=== PATIENT | female | born 1985 | race Caucasian/White ===

== ENCOUNTER 2016-12-11 07:57 | Outpatient (CLI) | payer OTHER ==
[~2016-12-11 07:57] MED LIST: PERCOCET1 TA1 PO
== END 2016-12-11 23:00 ==
LOC: LAB SRH 07:57
DX: Z00.00 Encounter for general adult medical examination without abnormal findings (principal)
CPT/HCPCS: 90074; 90100; 91282; 92690; 93140; 95059

== ENCOUNTER 2017-03-24 07:11 | Emergency (ER) | payer OTHER ==
--- NOTE | 2017-03-24 07:52 | ED CLINICAL REPORT ---
Clinical Report - Physicians/Mid Levels [facility] [address] [place] [address] 03/24/2017 7:12 Patient: JESSICA GUERRA Time Seen: 07:23. Arrived- By private vehicle. Historian- patient. HISTORY OF PRESENT ILLNESS Chief Complaint: DYSURIA. FLANK PAIN. This started several days ago and still present. It was gradual in onset and has been waxing/waning. The symptoms are described as moderate. Modifying factors- worsened by urination. Relieved by rest. The patient has had mild left-sided lower back pain. She has had mild left-sided flank pain. No abdominal pain, pelvic pain or abnormal bleeding. She has had pain with urination and urgency of urination. The patient has had urinary frequency and hematuria. 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 She reportedly had a urine test which confirmed UTI and was given a 3 day course of an uncertain antibiotic - may have "began with an N"). Similar symptoms previously: Recent medical care: The patient was seen recently at another facility. REVIEW OF SYSTEMS No nausea, vomiting, diarrhea, black stools or fever. No sore throat, cough, difficulty breathing, chest pain or skin rash. PAST HISTORY See nurses notes. ( PCP: Dr Kim). Urinary tract infection. Surgeries: Tubal ligation. Medications: None. Allergies: No Known Drug Allergy. SOCIAL HISTORY Never smoker. Occasional alcohol use. No drug use. Resides in a house. ADDITIONAL NOTES The nursing notes have been reviewed. PHYSICAL EXAM Vital Signs: 03/24/2017 07:16 BP: 119/74. HR: 83. RR: 16. O2 saturation: 100%. Temp: 98.3 F. Pain level now: 5/10. Appearance: Alert. Oriented X3. No acute distress. HEENT: Normal external inspection. ENT: Pharynx normal. Neck: Neck supple. CVS: Heart sounds normal. Respiratory: No respiratory distress. Breath sounds normal. Abdomen: Soft and nontender. No mass. Skin: Skin warm and dry. Normal skin color. No rash. Normal skin turgor. Extremities: Extremities nontender. No lower extremity edema. Neuro: Oriented X 3. Mood/affect normal. No motor deficit. LABS, X-RAYS, AND EKG Laboratory Tests: UA-Culture if indicated: (MIREILLE: 03/24/2017 07:20) ( MsgRcvd 03/24/2017 07:49) Final results Test Result Flag Units (Reference) URINE COLOR YELLOW URINE APPEARANCE CLEAR URINE GLUCOSE NEGATIVE (NEGATIVE) URINE BILIRUBIN NEGATIVE (NEGATIVE) URINE KETONE NEGATIVE (NEGATIVE) URINE SPECIFIC GRAVITY 1.020 (1.010-1.030) URINE PH 6.0 (5.0-8.0) URINE PROTEIN NEGATIVE (NEGATIVE) URINE UROBILINOGEN 0.2 EU/dL (0.2-1.0) URINE NITRITE NEGATIVE (NEGATIVE) URINE BLOOD NEGATIVE (NEGATIVE) URINE LEUK ESTERASE NEGATIVE (NEGATIVE) URINE RBC 0-1 rbc/hpf (0-1) URINE WBC 0-1 wbc/hpf (0-1) URINE EPITHELIAL CELLS 0-1 EPI/hpf (0-5) URINE BACTERIA NONE SEEN (NONE SEEN) URINE COMMENT CULT NOT INDICATED URINE CULTURES ARE SET-UP BASED ON THE FOLLOWING CRITERIA:POSITIVE NITRITEPOSITIVE LEUKOCYTE ESTERASEGREATER THAN 10 WHITE BLOOD CELLSMODERATE (2+) OR GREATER BACTERIA Urine: (MIREILLE: 03/24/2017 07:20) ( MsgRcvd 03/24/2017 07:29) Final results Test Result Flag Units (Reference) URINE NEGATIVE . Pulse Oximetry: 03/24/2017 07:16 O2 saturation: 100%. (FIO2 - room air). Interpretation: normal. PROGRESS AND PROCEDURES Course of Care: May be resolving UTI vs atypical kidney stone vs march hematuria vs other - will need close out pt follow up - she understands and states she will comply. Patient/family counseled. Old ED records reviewed. Disposition: Discharged. Condition: stable and improved. CLINICAL IMPRESSION Gross hematuria (possible "december hematuria"). Acute urinary tract infection with cystitis (resolving). Possible left nephrolithiasis with renal colic. INSTRUCTIONS Do not work for three days. Drink plenty of fluids. Warnings: Further evaluation is necessary in order to recheck abnormal lab, obtain test results, conduct further tests and assess the possibility of serious illness. It is very important to follow up with a physician. GENERAL WARNINGS: Return or contact your physician immediately if your condition worsens or changes unexpectedly, if not improving as expected, or if other problems arise. Prescription Medications: Pyridium 200 mg: take 1 orally every 8 hours as needed for urinary problems. Dispense six (6). No refills. Substitution is permissible. Follow-up with: Bety Kim MD, [facility], , [facility], [address] [place] [address] Follow up tomorrow. (Electronically signed by Mal Montalvo DO 03/25/2017 11:45)
--- NOTE | 2017-03-24 07:52 | ED ORDER SUMMARY ---
..... Patient: JESSICA GUERRA OrderSheet [facility] VisitID: [id number] [address] [place] [address] 31y, F Registration Date/Time: 03/24/2017 ORDER SHEET Weight: 78.0 kg (stated) Allergies: No Known Drug Allergy GENERAL ORDERS: UA-Culture if indicated Urgent (07:03/24/2017 MWinterer R.N. per protocol) (Ack 7:23 RKciara) (7:23 MWinterer R.N.) Urine Urgent (07:03/24/2017 MWinterer R.N. per protocol) (Ack 7:23 RKciara) (7:23 MWinterer R.N.) MEDICATION ORDERS: IV FLUIDS: ORDER SHEET NOTES: [Electronically signed by Roxane Gallo R.N. (09:03/25/2017)] [Electronically signed by Mal Montalvo DO (11:45 03/25/2017)] [Electronically locked/signed by Roxane Gallo R.N. (09:03/25/2017)]
--- NOTE | 2017-03-24 07:52 | ED CLINICAL REPORT ---
Clinical Report - Physicians/Mid Levels [facility] [address] [place] [address] 03/24/2017 7:12 Patient: JESSICA GUERRA Time Seen: 07:23. Arrived- By private vehicle. Historian- patient. HISTORY OF PRESENT ILLNESS Chief Complaint: DYSURIA. FLANK PAIN. This started several days ago and still present. It was gradual in onset and has been waxing/waning. The symptoms are described as moderate. Modifying factors- worsened by urination. Relieved by rest. The patient has had mild left-sided lower back pain. She has had mild left-sided flank pain. No abdominal pain, pelvic pain or abnormal bleeding. She has had pain with urination and urgency of urination. The patient has had urinary frequency and hematuria. 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 She reportedly had a urine test which confirmed UTI and was given a 3 day course of an uncertain antibiotic - may have "began with an N"). Similar symptoms previously: Recent medical care: The patient was seen recently at another facility. REVIEW OF SYSTEMS No nausea, vomiting, diarrhea, black stools or fever. No sore throat, cough, difficulty breathing, chest pain or skin rash. PAST HISTORY See nurses notes. ( PCP: Dr Kim). Urinary tract infection. Surgeries: Tubal ligation. Medications: None. Allergies: No Known Drug Allergy. SOCIAL HISTORY Never smoker. Occasional alcohol use. No drug use. Resides in a house. ADDITIONAL NOTES The nursing notes have been reviewed. PHYSICAL EXAM Vital Signs: 03/24/2017 07:16 BP: 119/74. HR: 83. RR: 16. O2 saturation: 100%. Temp: 98.3 F. Pain level now: 5/10. Appearance: Alert. Oriented X3. No acute distress. HEENT: Normal external inspection. ENT: Pharynx normal. Neck: Neck supple. CVS: Heart sounds normal. Respiratory: No respiratory distress. Breath sounds normal. Abdomen: Soft and nontender. No mass. Skin: Skin warm and dry. Normal skin color. No rash. Normal skin turgor. Extremities: Extremities nontender. No lower extremity edema. Neuro: Oriented X 3. Mood/affect normal. No motor deficit. LABS, X-RAYS, AND EKG Laboratory Tests: UA-Culture if indicated: (MIREILLE: 03/24/2017 07:20) ( MsgRcvd 03/24/2017 07:49) Final results Test Result Flag Units (Reference) URINE COLOR YELLOW URINE APPEARANCE CLEAR URINE GLUCOSE NEGATIVE (NEGATIVE) URINE BILIRUBIN NEGATIVE (NEGATIVE) URINE KETONE NEGATIVE (NEGATIVE) URINE SPECIFIC GRAVITY 1.020 (1.010-1.030) URINE PH 6.0 (5.0-8.0) URINE PROTEIN NEGATIVE (NEGATIVE) URINE UROBILINOGEN 0.2 EU/dL (0.2-1.0) URINE NITRITE NEGATIVE (NEGATIVE) URINE BLOOD NEGATIVE (NEGATIVE) URINE LEUK ESTERASE NEGATIVE (NEGATIVE) URINE RBC 0-1 rbc/hpf (0-1) URINE WBC 0-1 wbc/hpf (0-1) URINE EPITHELIAL CELLS 0-1 EPI/hpf (0-5) URINE BACTERIA NONE SEEN (NONE SEEN) URINE COMMENT CULT NOT INDICATED URINE CULTURES ARE SET-UP BASED ON THE FOLLOWING CRITERIA:POSITIVE NITRITEPOSITIVE LEUKOCYTE ESTERASEGREATER THAN 10 WHITE BLOOD CELLSMODERATE (2+) OR GREATER BACTERIA Urine: (MIREILLE: 03/24/2017 07:20) ( MsgRcvd 03/24/2017 07:29) Final results Test Result Flag Units (Reference) URINE NEGATIVE . Pulse Oximetry: 03/24/2017 07:16 O2 saturation: 100%. (FIO2 - room air). Interpretation: normal. PROGRESS AND PROCEDURES Course of Care: May be resolving UTI vs atypical kidney stone vs march hematuria vs other - will need close out pt follow up - she understands and states she will comply. Patient/family counseled. Old ED records reviewed. Disposition: Discharged. Condition: stable and improved. CLINICAL IMPRESSION Gross hematuria (possible "december hematuria"). Acute urinary tract infection with cystitis (resolving). Possible left nephrolithiasis with renal colic. INSTRUCTIONS Do not work for three days. Drink plenty of fluids. Warnings: Further evaluation is necessary in order to recheck abnormal lab, obtain test results, conduct further tests and assess the possibility of serious illness. It is very important to follow up with a physician. GENERAL WARNINGS: Return or contact your physician immediately if your condition worsens or changes unexpectedly, if not improving as expected, or if other problems arise. Prescription Medications: Pyridium 200 mg: take 1 orally every 8 hours as needed for urinary problems. Dispense six (6). No refills. Substitution is permissible. Follow-up with: Bety Kim MD, [facility], , [facility], [address] [place] [address] Follow up tomorrow. (Electronically signed by Mal Montalvo DO 03/25/2017 11:45)
--- NOTE | 2017-03-24 07:52 | ED NURSING NOTES ---
Clinical Report - Nurses [facility] [address] [place] [address] 03/24/2017 7:12 Patient: JESSICA GUERRA TRIAGE Acuity: LEVEL 3. Chief Complaint: PAINFUL URINATION and LEFT-SIDED FLANK PAIN and BLOOD IN URINE. Alert. No acute distress. --07:20 Roxane Gallo R.N. 07:16 03/24/17. BP: 119/74. HR: 83. RR: 16. O2 saturation: 100%. Temp: 98.3 F (oral). Pain level now: 02/13. --07:20 Roxane Gallo R.N. Weight: 78 kg stated. Height/Length: 63 inches Per Patient. BMI: 30.5. --07:18 Roxane Gallo R.N. Medications None. --07:18 Roxane Gallo R.N. Medication/allergy information source: the patient. --07:20 Roxane Gallo R.N. Allergies No Known Drug Allergy. --07:18 Roxane Gallo R.N. History Arrived by private vehicle. Historian: patient. Unaccompanied. Primary physician (Julio). Onset. (4 days ago). 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 PAST MEDICAL HX: Immunizations: up-to-date. Last normal menstrual period was 3 weeks ago. Has had a tubal ligation. SOCIAL HX: Never smoker. Occasional alcohol use; consumes wine. No drug use. FALL RISK ASSESSMENT: Fall risk assessment completed. No fall risk identified. NUTRITIONAL RISK ASSESSMENT: The nutritional risk assessment revealed no deficiencies. FUNCTIONAL ASSESSMENT: Functional assessment: no impairments noted. LEARNING NEEDS ASSESSMENT: The learning needs assessment revealed no barriers. SKIN INTEGRITY ASSESSMENT: Skin integrity risk assessment completed. No skin integrity risk identified. --07:20 Roxane Gallo R.N. Assessment GENERAL / NEURO / PSYCH: Alert. Oriented X 4. Appears in no acute distress. [place] Coma Scale: 15- eyes open spontaneously (4); best verbal response- oriented x 4 (5); best motor response- obeys commands (6). Patient appears calm and cooperative. RESPIRATORY: Respirations not labored. CVS: Capillary refill less than 2 seconds. GI / : Abdomen soft and nontender. SKIN: Mucous membranes are pink. Skin is warm and dry. --07:20 Roxane Gallo R.N. Interventions ID band on patient. To treatment room. --07:20 Roxane Gallo R.N. PHYSICAL ASSESSMENT 07:03/24/17. Ambulatory to room. GENERAL / NEURO / PSYCH: Alert. Oriented X 4. Appears in no acute distress. HEENT: Mucous membranes are pink. RESPIRATORY: Respirations not labored. CVS: Capillary refill less than 2 seconds. GI / : Abdomen soft and nontender. SKIN: Skin is warm and dry. --07:21 Roxane Gallo R.N. NURSING PROGRESS NOTES 07:21 03/24/17. Patient gowned. Two patient identifiers checked. Call light placed in reach. Bed placed in lowest position. Brakes of bed on. Patient ready for evaluation- chart flagged and ED physician notified. --07:21 Roxane Gallo R.N. 07:03/24/17. Checked patient name and birthdate: patient confirmed. Instructions provided to collect clean catch urine and patient verbalized understanding. Clean catch urine collected with return of yellow-colored clear urine; sample sent to lab for urinalysis and HCG. Specimen labeled in the presence of the patient. --07:21 Roxane Gallo R.N. DISPOSITION / DISCHARGE 08:03/24/17. BP: 117/68. HR: 71. RR: 18. O2 saturation: 100%. Temp: 97.9 F. --08:06 Claudia Adler 08:10. The patient was discharged by the physician. --15:49 Elodia Vasquez R.N. Locked/Released at 03/25/2017 9:01 by Roxane Gallo R.N.
--- NOTE | 2017-03-24 07:52 | ED ORDER SUMMARY ---
..... Patient: JESSICA GUERRA OrderSheet [facility] VisitID: [id number] [address] [place] [address] 31y, F Registration Date/Time: 03/24/2017 ORDER SHEET Weight: 78.0 kg (stated) Allergies: No Known Drug Allergy GENERAL ORDERS: UA-Culture if indicated Urgent (07:03/24/2017 MWinterer R.N. per protocol) (Ack 7:23 RKciara) (7:23 MWinterer R.N.) Urine Urgent (07:03/24/2017 MWinterer R.N. per protocol) (Ack 7:23 RKciara) (7:23 MWinterer R.N.) MEDICATION ORDERS: IV FLUIDS: ORDER SHEET NOTES: [Electronically signed by Roxane Gallo R.N. (09:03/25/2017)] [Electronically signed by Mal Montalvo DO (11:45 03/25/2017)] [Electronically locked/signed by Roxane Gallo R.N. (09:03/25/2017)]
--- NOTE | 2017-03-24 07:52 | ED NURSING NOTES ---
Clinical Report - Nurses [facility] [address] [place] [address] 03/24/2017 7:12 Patient: JESSICA GUERRA TRIAGE Acuity: LEVEL 3. Chief Complaint: PAINFUL URINATION and LEFT-SIDED FLANK PAIN and BLOOD IN URINE. Alert. No acute distress. --07:20 Roxane Gallo R.N. 07:16 03/24/17. BP: 119/74. HR: 83. RR: 16. O2 saturation: 100%. Temp: 98.3 F (oral). Pain level now: 02/13. --07:20 Roxane Gallo R.N. Weight: 78 kg stated. Height/Length: 63 inches Per Patient. BMI: 30.5. --07:18 Roxane Gallo R.N. Medications None. --07:18 Roxane Gallo R.N. Medication/allergy information source: the patient. --07:20 Roxane Gallo R.N. Allergies No Known Drug Allergy. --07:18 Roxane Gallo R.N. History Arrived by private vehicle. Historian: patient. Unaccompanied. Primary physician (Julio). Onset. (4 days ago). 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 PAST MEDICAL HX: Immunizations: up-to-date. Last normal menstrual period was 3 weeks ago. Has had a tubal ligation. SOCIAL HX: Never smoker. Occasional alcohol use; consumes wine. No drug use. FALL RISK ASSESSMENT: Fall risk assessment completed. No fall risk identified. NUTRITIONAL RISK ASSESSMENT: The nutritional risk assessment revealed no deficiencies. FUNCTIONAL ASSESSMENT: Functional assessment: no impairments noted. LEARNING NEEDS ASSESSMENT: The learning needs assessment revealed no barriers. SKIN INTEGRITY ASSESSMENT: Skin integrity risk assessment completed. No skin integrity risk identified. --07:20 Roxane Gallo R.N. Assessment GENERAL / NEURO / PSYCH: Alert. Oriented X 4. Appears in no acute distress. [place] Coma Scale: 15- eyes open spontaneously (4); best verbal response- oriented x 4 (5); best motor response- obeys commands (6). Patient appears calm and cooperative. RESPIRATORY: Respirations not labored. CVS: Capillary refill less than 2 seconds. GI / : Abdomen soft and nontender. SKIN: Mucous membranes are pink. Skin is warm and dry. --07:20 Roxane Gallo R.N. Interventions ID band on patient. To treatment room. --07:20 Roxane Gallo R.N. PHYSICAL ASSESSMENT 07:03/24/17. Ambulatory to room. GENERAL / NEURO / PSYCH: Alert. Oriented X 4. Appears in no acute distress. HEENT: Mucous membranes are pink. RESPIRATORY: Respirations not labored. CVS: Capillary refill less than 2 seconds. GI / : Abdomen soft and nontender. SKIN: Skin is warm and dry. --07:21 Roxane Gallo R.N. NURSING PROGRESS NOTES 07:21 03/24/17. Patient gowned. Two patient identifiers checked. Call light placed in reach. Bed placed in lowest position. Brakes of bed on. Patient ready for evaluation- chart flagged and ED physician notified. --07:21 Roxane Gallo R.N. 07:03/24/17. Checked patient name and birthdate: patient confirmed. Instructions provided to collect clean catch urine and patient verbalized understanding. Clean catch urine collected with return of yellow-colored clear urine; sample sent to lab for urinalysis and HCG. Specimen labeled in the presence of the patient. --07:21 Roxane Gallo R.N. DISPOSITION / DISCHARGE 08:03/24/17. BP: 117/68. HR: 71. RR: 18. O2 saturation: 100%. Temp: 97.9 F. --08:06 Claudia Adler 08:10. The patient was discharged by the physician. --15:49 Elodia Vasquez R.N. Locked/Released at 03/25/2017 9:01 by Roxane Gallo R.N.
--- NOTE | 2017-03-25 11:45 | ED MAR SUMMARY ---
..... Medication Administration Record [facility] [address] [place], [place] [id number] Patient: JESSICA GUERRA Visit ID: [id number] 31y, F Weight: 78.0 kg Height/Length: 63 in BMI: 30.5 ALLERGIES: No Known Drug Allergy
--- NOTE | 2017-03-25 11:45 | ED DISCHARGE INSTRUCTIONS ---
Patient: JESSICA GUERRA General Instructions [facility] VisitID: [id number] [address] [place] [address] 31y, F Registration Date/Time: 03/24/2017 Gross hematuria Acute urinary tract infection with cystitis (resolving). INSTRUCTIONS Do not work for three days. Drink plenty of fluids. Warnings: Further evaluation is necessary in order to recheck abnormal lab, obtain test results, conduct further tests and assess the possibility of serious illness. It is very important to follow up with a physician. GENERAL WARNINGS: Return or contact your physician immediately if your condition worsens or changes unexpectedly, if not improving as expected, or if other problems arise. Prescription Medications: Pyridium 200 mg: take 1 orally every 8 hours as needed for urinary problems. Dispense six (6). No refills. Substitution is permissible. Follow-up with: Bety Kim MD, [facility], , [facility], [address] [place] [address] Follow up tomorrow. ADDITIONAL INFORMATION Bladder Infection,Female (Adult) A bladder infection ("cystitis" or "UTI") usually causes a constant urge to urinate and a burning when passing urine. Urine may be cloudy, smelly or dark. There may be pain in the lower abdomen. A bladder infection occurs when bacteria from the vaginal area enter the bladder opening (urethra). This can occur from sexual intercourse, wearing tight clothing, dehydration and other factors. Home Care: Drink lots of fluids (at least 6-8 glasses a day, unless you must restrict fluids for other medical reasons). This will force the medicine into your urinary system and flush the bacteria out of your body. Avoid sexual intercourse until your symptoms are gone. Avoid caffeine, alcohol and spicy foods. These can irritate the bladder. A bladder infection is treated with antibiotics. You may also be given Pyridium (generic = phenazopyridine) to reduce the burning sensation. This medicine will cause your urine to become a bright orange color. The orange urine may stain clothing. You may wear a pad or panty-liner to protect clothing. Preventing Future Infections: Always wipe from front to back after a bowel movement. Keep the genital area clean and dry. Drink plenty of fluids each day to avoid dehydration. Both sexual partners should wash before intercourse. Urinate right after intercourse to flush out the bladder. Wear cotton underwear and cotton-lined panty hose; avoid tight-fitting pants. If you are on control pills and are having frequent bladder infections, discuss with your doctor. Follow Up: Return to this facility or see your doctor if ALL symptoms are not gone after three days of treatment. Get Prompt Medical Attention if any of the following occur: Fever of 100.4F (38C) or higher, or as directed by your healthcare provider No improvement by the third day of treatment Increasing back or abdominal pain Repeated vomiting; unable to keep medicine down Weakness, dizziness or fainting Vaginal discharge Pain, redness or swelling in the labia (outer vaginal area) Blood In The Urine Blood in the urine ("hematuria") has many possible causes. If it occurs after an injury (such as a car accident or fall), it is most often a sign of bruising to the kidney or bladder. Common medical causes of blood in the urine include urinary tract infection, kidney stone, inflammation, tumors, or certain other diseases of the kidney or bladder. Menstruation can cause blood to appear in the urine sample, although it is not coming from the urinary tract. If only a trace amount of blood is present, it will show up on the urine test, even though the urine may be yellow and not pink or red. This may occur with any of the above conditions, as well as heavy exercise or high fever. In this case, your doctor may want to repeat the urine test on another day. This will show if the blood is still present. If so, then other tests can be done to find out the cause. Home Care: If your urine does not appear bloody (pink, brown or red) then you do not need to restrict your activity in any way. If you can see blood in your urine, rest and avoid heavy exertion until your next exam. Do not use aspirin or anti-inflammatory medicine like ibuprofen (Motrin, Advil) or naproxen (Naprosyn, Aleve). These thin the blood and may increase bleeding. Follow Up with your doctor or as advised by our staff. If you were injured and had blood in your urine, you should have a repeat urine test in 1-2 days. Contact your doctor or return to this facility for this test. [NOTE: A radiologist will review any X-rays that were taken. We will notify you of any new findings that may affect your care.] Get Prompt Medical Attention if any of the following occur: Bright red blood or blood clots in the urine (if a new symptom) Weakness, dizziness or fainting New groin, abdominal or back pain Fever of 100.4F (38C) or higher, or as directed by your healthcare provider Repeated vomiting Bleeding from nose, gums or easy bruising Phenazopyridine Hydrochloride Oral tablet What is this medicine? PHENAZOPYRIDINE (fen az oh PEER i ramon) is a pain reliever. It is used to stop the pain, burning, or discomfort caused by infection or irritation of the urinary tract. This medicine is not an antibiotic. It will not cure a urinary tract infection. How should I use this medicine? Take this medicine by mouth with a glass of water. Follow the directions on the prescription label. Take after meals. Take your doses at regular intervals. Do not take your medicine more often than directed. Do not skip doses or stop your medicine early even if you feel better. Do not stop taking except on your doctor's advice. Talk to your hand flesher regarding the use of this medicine in children. Special care may be needed. What side effects may I notice from receiving this medicine? Side effects that you should report to your doctor or health childcare aide as soon as possible: allergic reactions like skin rash, itching or hives, swelling of the face, lips, or tongue blue or purple color of the skin difficulty breathing fever less urine unusual bleeding, bruising unusual tired, weak vomiting yellowing of the eyes or skin Side effects that usually do not require medical attention (report to your doctor or health childcare aide if they continue or are bothersome): dark urine headache stomach upset What may interact with this medicine? Interactions are not expected. What if I miss a dose? If you miss a dose, take it as soon as you can. If it is almost time for your next dose, take only that dose. Do not take double or extra doses. Where should I keep my medicine? Keep out of the reach of children. Store at room temperature between 15 and 30 degrees C (59 and 86 degrees F). Protect from light and moisture. Throw away any unused medicine after the expiration date. What should I tell my health care provider before I take this medicine? They need to know if you have any of these conditions: [id number]-3-kpnjejajw dehydrogenase (G6PD) deficiency kidney disease an unusual or allergic reaction to phenazopyridine, other medicines, foods, dyes, or preservatives or trying to get breast-feeding What should I watch for while using this medicine? Tell your doctor or health childcare aide if your symptoms do not improve or if they get worse. This medicine colors body fluids red. This effect is harmless and will go away after you are done taking the medicine. It will change urine to an dark orange or red color. The red color may stain clothing. Soft contact lenses may become permanently stained. It is best not to wear soft contact lenses while taking this medicine. If you are diabetic you may get a false positive result for sugar in your urine. Talk to your health care provider. You have been given the following additional information: Bladder Infection, Female (Adult) Hematuria Phenazopyridine Hydrochloride Oral tablet Do not work for three days. (Electronically signed by Mal Montalvo DO 03/25/2017 11:45)
--- NOTE | 2017-03-25 11:45 | ED MAR SUMMARY ---
..... Medication Administration Record [facility] [address] [place], [place] [id number] Patient: JESSICA GUERRA Visit ID: [id number] 31y, F Weight: 78.0 kg Height/Length: 63 in BMI: 30.5 ALLERGIES: No Known Drug Allergy
--- NOTE | 2017-03-25 11:45 | ED MED RECONCILIATION SUMMARY ---
Patient: JESSICA GUERRA Medication Reconciliation Report [facility] VisitID: [id number] [address] [place] [address] 31y, F Registration Date/Time: 03/24/2017 Weight: 78.0 kg Height/Length: 63 in. BMI: 30.5 ALLERGIES: No Known Drug Allergy The patient's Home Medications are listed below: NONE. The source(s) of the original Home Medication information: patient The following Medications were given to the patient in the Emergency Department: None. The following Medications were prescribed to the patient: Pyridium 200 mg: take 1 orally every 8 hours as needed for urinary problems. Dispense six (6). No refills. Substitution is permissible. -- Mal Montalvo, DO
--- NOTE | 2017-03-25 11:45 | ED DISCHARGE INSTRUCTIONS ---
Patient: JESSICA GUERRA General Instructions [facility] VisitID: [id number] [address] [place] [address] 31y, F Registration Date/Time: 03/24/2017 Gross hematuria Acute urinary tract infection with cystitis (resolving). INSTRUCTIONS Do not work for three days. Drink plenty of fluids. Warnings: Further evaluation is necessary in order to recheck abnormal lab, obtain test results, conduct further tests and assess the possibility of serious illness. It is very important to follow up with a physician. GENERAL WARNINGS: Return or contact your physician immediately if your condition worsens or changes unexpectedly, if not improving as expected, or if other problems arise. Prescription Medications: Pyridium 200 mg: take 1 orally every 8 hours as needed for urinary problems. Dispense six (6). No refills. Substitution is permissible. Follow-up with: Bety Kim MD, [facility], , [facility], [address] [place] [address] Follow up tomorrow. ADDITIONAL INFORMATION Bladder Infection,Female (Adult) A bladder infection ("cystitis" or "UTI") usually causes a constant urge to urinate and a burning when passing urine. Urine may be cloudy, smelly or dark. There may be pain in the lower abdomen. A bladder infection occurs when bacteria from the vaginal area enter the bladder opening (urethra). This can occur from sexual intercourse, wearing tight clothing, dehydration and other factors. Home Care: Drink lots of fluids (at least 6-8 glasses a day, unless you must restrict fluids for other medical reasons). This will force the medicine into your urinary system and flush the bacteria out of your body. Avoid sexual intercourse until your symptoms are gone. Avoid caffeine, alcohol and spicy foods. These can irritate the bladder. A bladder infection is treated with antibiotics. You may also be given Pyridium (generic = phenazopyridine) to reduce the burning sensation. This medicine will cause your urine to become a bright orange color. The orange urine may stain clothing. You may wear a pad or panty-liner to protect clothing. Preventing Future Infections: Always wipe from front to back after a bowel movement. Keep the genital area clean and dry. Drink plenty of fluids each day to avoid dehydration. Both sexual partners should wash before intercourse. Urinate right after intercourse to flush out the bladder. Wear cotton underwear and cotton-lined panty hose; avoid tight-fitting pants. If you are on control pills and are having frequent bladder infections, discuss with your doctor. Follow Up: Return to this facility or see your doctor if ALL symptoms are not gone after three days of treatment. Get Prompt Medical Attention if any of the following occur: Fever of 100.4F (38C) or higher, or as directed by your healthcare provider No improvement by the third day of treatment Increasing back or abdominal pain Repeated vomiting; unable to keep medicine down Weakness, dizziness or fainting Vaginal discharge Pain, redness or swelling in the labia (outer vaginal area) Blood In The Urine Blood in the urine ("hematuria") has many possible causes. If it occurs after an injury (such as a car accident or fall), it is most often a sign of bruising to the kidney or bladder. Common medical causes of blood in the urine include urinary tract infection, kidney stone, inflammation, tumors, or certain other diseases of the kidney or bladder. Menstruation can cause blood to appear in the urine sample, although it is not coming from the urinary tract. If only a trace amount of blood is present, it will show up on the urine test, even though the urine may be yellow and not pink or red. This may occur with any of the above conditions, as well as heavy exercise or high fever. In this case, your doctor may want to repeat the urine test on another day. This will show if the blood is still present. If so, then other tests can be done to find out the cause. Home Care: If your urine does not appear bloody (pink, brown or red) then you do not need to restrict your activity in any way. If you can see blood in your urine, rest and avoid heavy exertion until your next exam. Do not use aspirin or anti-inflammatory medicine like ibuprofen (Motrin, Advil) or naproxen (Naprosyn, Aleve). These thin the blood and may increase bleeding. Follow Up with your doctor or as advised by our staff. If you were injured and had blood in your urine, you should have a repeat urine test in 1-2 days. Contact your doctor or return to this facility for this test. [NOTE: A radiologist will review any X-rays that were taken. We will notify you of any new findings that may affect your care.] Get Prompt Medical Attention if any of the following occur: Bright red blood or blood clots in the urine (if a new symptom) Weakness, dizziness or fainting New groin, abdominal or back pain Fever of 100.4F (38C) or higher, or as directed by your healthcare provider Repeated vomiting Bleeding from nose, gums or easy bruising Phenazopyridine Hydrochloride Oral tablet What is this medicine? PHENAZOPYRIDINE (fen az oh PEER i ramon) is a pain reliever. It is used to stop the pain, burning, or discomfort caused by infection or irritation of the urinary tract. This medicine is not an antibiotic. It will not cure a urinary tract infection. How should I use this medicine? Take this medicine by mouth with a glass of water. Follow the directions on the prescription label. Take after meals. Take your doses at regular intervals. Do not take your medicine more often than directed. Do not skip doses or stop your medicine early even if you feel better. Do not stop taking except on your doctor's advice. Talk to your automatic serging machine operator regarding the use of this medicine in children. Special care may be needed. What side effects may I notice from receiving this medicine? Side effects that you should report to your doctor or health pet caretaker as soon as possible: allergic reactions like skin rash, itching or hives, swelling of the face, lips, or tongue blue or purple color of the skin difficulty breathing fever less urine unusual bleeding, bruising unusual tired, weak vomiting yellowing of the eyes or skin Side effects that usually do not require medical attention (report to your doctor or health pet caretaker if they continue or are bothersome): dark urine headache stomach upset What may interact with this medicine? Interactions are not expected. What if I miss a dose? If you miss a dose, take it as soon as you can. If it is almost time for your next dose, take only that dose. Do not take double or extra doses. Where should I keep my medicine? Keep out of the reach of children. Store at room temperature between 15 and 30 degrees C (59 and 86 degrees F). Protect from light and moisture. Throw away any unused medicine after the expiration date. What should I tell my health care provider before I take this medicine? They need to know if you have any of these conditions: [id number]-3-oilckpobd dehydrogenase (G6PD) deficiency kidney disease an unusual or allergic reaction to phenazopyridine, other medicines, foods, dyes, or preservatives or trying to get breast-feeding What should I watch for while using this medicine? Tell your doctor or health pet caretaker if your symptoms do not improve or if they get worse. This medicine colors body fluids red. This effect is harmless and will go away after you are done taking the medicine. It will change urine to an dark orange or red color. The red color may stain clothing. Soft contact lenses may become permanently stained. It is best not to wear soft contact lenses while taking this medicine. If you are diabetic you may get a false positive result for sugar in your urine. Talk to your health care provider. You have been given the following additional information: Bladder Infection, Female (Adult) Hematuria Phenazopyridine Hydrochloride Oral tablet Do not work for three days. (Electronically signed by Mal Montalvo DO 03/25/2017 11:45)
--- NOTE | 2017-03-25 11:45 | ED MED RECONCILIATION SUMMARY ---
Patient: JESSICA GUERRA Medication Reconciliation Report [facility] VisitID: [id number] [address] [place] [address] 31y, F Registration Date/Time: 03/24/2017 Weight: 78.0 kg Height/Length: 63 in. BMI: 30.5 ALLERGIES: No Known Drug Allergy The patient's Home Medications are listed below: NONE. The source(s) of the original Home Medication information: patient The following Medications were given to the patient in the Emergency Department: None. The following Medications were prescribed to the patient: Pyridium 200 mg: take 1 orally every 8 hours as needed for urinary problems. Dispense six (6). No refills. Substitution is permissible. -- Mal Montalvo, DO
== END 2017-03-24 08:10 | disposition home or self-care (01) ==
LOC: ED SRH 07:11
DX: N30.01 Acute cystitis with hematuria (principal)
CPT/HCPCS: 90004; 93070